=== PATIENT | male | born 1980 | race Caucasian/White ===

== ENCOUNTER 2017-04-03 16:56 | Emergency (ER) | payer OTHER ==
[~2017-04-03] VITALS: Ht 185.4 cm; Wt 148.0 kg
[~2017-04-03 16:56] MED LIST: No meds per pt.
[2017-04-03 17:15] VITALS: BP 150/92
[2017-04-03] MEDS ORDERED: LIDOCAINE 1%, 20ML SQ ONE (17:30)
[2017-04-03] MEDS ORDERED: LIDOCAINE 1%, 20ML ONE (19:22)
== END 2017-04-03 20:55 | disposition home or self-care (01) ==
LOC: ED 19:50
DX: K61.1 Rectal abscess (principal)
CPT/HCPCS: 10060; 46040; 99283; 99284